=== PATIENT | male | born 1995 | race Caucasian/White ===

== ENCOUNTER 2017-04-29 09:06 | Emergency (ER) | payer MEDICAID ==
[~2017-04-29] VITALS: Ht 170.2 cm; Wt 65.0 kg
[~2017-04-29 09:06] MED LIST: AMOX500T PO; CEPH250C PO; IBUP-238 PO; LORTS PO
[2017-04-29 09:07] VITALS: BP 134/80; PULSE 87; RESP 16; TEMP 97.7; O2SAT 100
[2017-04-29] MEDS ORDERED: NAPROXEN 500 MG TAB PO ONE (09:45)
[2017-04-29] MEDS ORDERED: NAPR500 PO (09:54)
--- NOTE | 2017-04-29 09:54 | PD ---
HPI Chief Complaint: Complaint Time Seen by Provider: 09:28 Travel History International Travel<30 days: No Contact w/Intl Traveler<30days: No Traveled to known affect area: No History of Present Illness HPI Is a 22-year-old male presents to the emergency department complaining of right flank pain is been ongoing for the past 2 years. He states is been fairly constant. He reports he's been seen in [facility] several times for this, and has had 3 or 4 CAT scans in his lifetime. He states he is told that the pain is been from kidney stones. States he's never really passed kidney stones. States symptoms are worse after he can work in a long day. Denies any history of back problems. He reports over the past 4 days symptoms of been worse. Only other symptoms are some occasional nausea, no vomiting. Is also had a little bit difficulty initiating urination in the past. Denies any fevers or chills. No other acute complaints. History Past Medical History Medical History: Denies Significant Hx Tetanus Vaccination: > 5 Years Influenza Vaccination: No PNEUMOCCOCAL Vaccine (Year): 2 Social History Alcohol Use: Yes Tobacco Use: Yes (1 PPD) Allergies-Medications (Allergen,Severity, Reaction): Coded Allergies: No Known Allergies (Verified , 04/29/17) Reported Meds & Prescriptions Reported Meds & Active Scripts Active No Active Prescriptions or Reported Medications Review of Systems Except as stated in HPI: all other systems reviewed are Neg Physical Exam Narrative GENERAL: Well 22-year-old man, no acute distress. SKIN: Focused skin assessment warm/dry. HEAD: Atraumatic. Normocephalic. EYES: Pupils equal and round. No scleral icterus. No injection or drainage. ENT: No nasal bleeding or discharge. Mucous membranes pink and moist. NECK: Trachea midline. No JVD. CARDIOVASCULAR: Regular rate and rhythm. No murmur appreciated. RESPIRATORY: No accessory muscle use. Clear to auscultation. Breath sounds equal bilaterally. GASTROINTESTINAL: No CVA tenderness to percussion. Abdomen soft, non-tender, nondistended. Hepatic and splenic margins not palpable. MUSCULOSKELETAL: No obvious deformities. Data Data Last Documented VS Vital Signs Date Time Temp Pulse Resp B/P Pulse Ox O2 Delivery O2 Flow Rate FiO2 04/29/17 09:23 90 18 04/29/17 09:07 97.7 134/80 100 Room Air Orders Urinalysis - C+S If Indicated (04/29/17 09:35) Naproxen (Naprosyn) (04/29/17 09:45) MDM Medical Decision Making Medical Screen Exam Complete: Yes Emergency Medical Condition: Yes Differential Diagnosis Flank pain, renal colic, kidney stone, other Narrative Course Medical decision making 21-year-old man, well-appearing, with chronic right flank pain this ongoing for 2 years. I'm hesitant to treat this pain to kidney stones. Patient had multiple CAT scans in the past. Unfortunately none of these are available for my review. Nonetheless he looks well. Having no acute symptoms that are worrisome for infection or complete obstruction. Suspect this may be more related to musculoskeletal pain. We'll recommend NSAIDs. Patient does not taken anything yet. Also recommended he get off his records together from previous hospitals and follow-up with urology for further evaluation. Diagnosis Primary Impression: Flank pain Additional Instructions: Take Naprosyn as needed for pain. Collect failure medical records together including previous imaging, diagnostic studies, and ED visits, and follow-up with urology for further evaluation of your chronic pain to see if it could be attributed to kidney stones and what may be done about it. Med/Other Pt SpecificInfo: Prescription(s) given Scripts Naproxen (Naprosyn)500 Mg Dry560 Mg PO BID PRN (PAIN SCALE 1 TO 10) #20 TAB Prov:Brien Leon MD 04/29/17 Disposition: 01 DISCHARGE HOME Condition: Stable Brien Leon MD Apr 29, 2017 09:54
[2017-04-29 10:05] LABS: BLOOD, URINE NEG (NEG); GLUCOSE,URINE NEG (NEG); KETONE, URINE NEG (NEG); NITRITE,URINE NEG (NEG); PH, URINE 6.5 (5.0-8.5); URINE COLOR YELLOW (YELLW/STRAW)
[2017-04-29 10:20] LABS: COMMENT (UR) CULT NOT INDICATED; CULTURE IF INDICATED CULT NOT INDICATED
== END 2017-04-29 10:12 | disposition home or self-care (01) ==
LOC: NEPD 09:06
DX: R10.9 Unspecified abdominal pain (principal); F17.200 Nicotine dependence, unspecified, uncomplicated
CPT/HCPCS: 81001; 99283

== ENCOUNTER 2017-12-26 16:14 | Emergency (ER) | payer SELFPAY ==
[~2017-12-26] VITALS: Ht 167.6 cm; Wt 60.0 kg
[~2017-12-26 16:14] MED LIST changes: -AMOX500T PO; -CEPH250C PO; -IBUP-238 PO; -LORTS PO; +NAPR500 PO
[2017-12-26 16:16] VITALS: BP 131/74; PULSE 93; RESP 18; TEMP 98.1; O2SAT 96
[2017-12-26] MEDS ORDERED: SODIUM CHLOR 0.9% 1000 ML INJ 1,000 ML IV SCH (16:34)
[2017-12-26] MEDS ORDERED: KETOROLAC TROMETHAMINE 30 MG/ML (IVP) VIAL IVP ONE (16:45)
[2017-12-26] MEDS ORDERED: SODIUM CHLORIDE 0.9% FLUSH 10 ML FLUSH IV FLUSH PRN (16:45)
[2017-12-26 17:21] LABS: AUTOMATED NEUTROPHIL # 2.2 TH/MM3 (1.8-7.7); BASOPHIL % 0.3 % (0.0-2.0); BILIRUBIN, URINE NEG (NEG); BLOOD, URINE NEG (NEG); EOSINOPHIL % 0.1 % (0.0-4.0); GLUCOSE,URINE NEG (NEG); HEMATOCRIT 42.9 % (39.0-51.0); HEMOGLOBIN 15.5 GM/DL (13.0-17.0); KETONE, URINE NEG (NEG); LYMPH % 30.2 % (9.0-44.0); LYMPHOCYTE # 1.3 TH/MM3 (1.0-4.8); MEAN CELL VOLUME 86.7 FL (80.0-100.0); MEAN CORPUSCULAR HEMOGLOBIN 31.3 PG (27.0-34.0); MEAN PLATELET VOLUME 8.8 FL (7.0-11.0); MONO % 16.5 % (0.0-8.0); MONOCYTE # 0.7 TH/MM3 (0-0.9); MUCUS URINE FEW /lpf (OCC); NEUT % 52.9 % (16.0-70.0); NITRITE,URINE NEG (NEG); PH, URINE 5.5 (5.0-8.5); PLATELET COUNT 192 TH/MM3 (150-450); RED BLOOD COUNT 4.95 MIL/MM3 (4.50-5.90); RED CELL DISTRIBUTION WIDTH 12.4 % (11.6-17.2); SQUAMOUS EPITHELIAL CELL URINE <1 /hpf (0-5); URINE COLOR YELLOW (YELLW/STRAW); URINE LEUKOCYTE ESTERASE NEG (NEG); WHITE BLOOD COUNT 4.2 TH/MM3 (4.0-11.0)
--- NOTE | 2017-12-26 17:21 | RADRPT ---
EXAM DATE/TIME: 12/26/2017 16:58 [facility] COMPARISON: No previous studies available for comparison. INDICATIONS : Right flank pain, recent flu. ORAL CONTRAST: No oral contrast ingested. RADIATION DOSE: 3.05 CTDIvol (mGy) MEDICAL HISTORY : Renal calculi. Facial palsy SURGICAL HISTORY : Rt arm lymphnodes ENCOUNTER: Initial ACUITY: 1 day PAIN SCALE: 10/10 LOCATION: Right flank TECHNIQUE: Volumetric scanning of the abdomen and pelvis was performed. Using automated exposure control and ad justment of the mA and/or kV according to patient size, radiation dose was kept as low as reasonably achievable to obtain optimal diagnostic quality images. DICOM format image data is available electro nically for review and comparison. FINDINGS: Lung bases are clear. No acute findings in the liver, spleen, adrenals or pancreas. There are bilateral renal calculi. There are tiny punctate calcifications in the upper and lower pole right kidney measuring 1-2 mm. Is a 3 mm calculus upper pole left kidney heads 1-2 mm calcifications lower pole left kidney. No hydronephrosis. No definite bladder or ureteral calculi are identified. No pelvic masses or free fluid. No acute bony abnormalities. CONCLUSION: 1. Small bilateral nonobstructing renal calculi. No acute findings. Aki Gonzalez MD on December 26, 2017 at 17:13 Board Certified Radiologist. This report was verified electronically.
[2017-12-26 17:29] LABS: ALBUMIN 4.8 GM/DL (3.4-5.0); AST (GOT) 40 U/L (15-37); BICARBONATE 30.7 MEQ/L (21.0-32.0); BLOOD UREA NITROGEN 14 MG/DL (7-18); CALCIUM 8.8 MG/DL (8.5-10.1); CHLORIDE 101 MEQ/L (98-107); CREATININE 0.77 MG/DL (0.60-1.30); GLOMERULAR FILTRATION RATE 125 ML/MIN (>89); GLUCOSE,RANDOM 95 MG/DL (74-106); SODIUM (NA) 137 MEQ/L (136-145)
[2017-12-26 17:30] LABS: ALT (GPT) 17 U/L (12-78)
[2017-12-26 17:32] LABS: ALKALINE PHOSPHATASE 89 U/L (45-117); TOTAL BILIRUBIN ADULT 1.8 MG/DL (0.2-1.0); TOTAL PROTEIN 8.3 GM/DL (6.4-8.2)
[2017-12-26 17:36] LABS: MEAN CORPUSCULAR HGB CONC 36.1 % (32.0-36.0)
[2017-12-26 18:13] LABS: BANDS 8 % (0-6); BASOPHILS 1 % (0-2); LYMPHOCYTES 28 % (9-44); MONOCYTES 11 % (0-8); NEUTROPHIL # MANUAL DIFF 2.5 TH/MM3 (1.8-7.7); POLYS (SEG NEUTROPHILS) 52 % (16-70)
[2017-12-26] MEDS ORDERED: IBUP1TAB7 PO (18:39)
--- NOTE | 2017-12-26 18:40 | PD ---
HPI Chief Complaint: Flank/Kidney Pain Time Seen by Provider: 16:23 Travel History International Travel<30 days: No Contact w/Intl Traveler<30days: No Traveled to known affect area: No History of Present Illness HPI 22-year-old male presents to the emergency department with complaint of severe right flank pain that has been on and off for the past 2 years and started again a couple days ago. He has had multiple CT scans in the past and has been told he has kidney stones and that he has been told he does not have kidney stones. He reports dysuria. Denies hematuria. Denies fever. Reports nausea without vomiting. Says he did vomit 2 days ago but did have the flu last week. Has been taking ibuprofen for symptom management. Rates pain 05/10. Describes it as a aching sensation. No known aggravating or relieving factors. No primary care provider. History of kidney stones. No known allergies. No other modifying factors or associated signs and symptoms. PFSH Past Medical History Autoimmune Disease: No Blood Disorders: No Anxiety: No Depression: No Cardiovascular Problems: No Diminished Hearing: No Gastrointestinal Disorders: No (CONSTIPATION) Genitourinary: No Musculoskeletal: No Psychiatric: No Respiratory: No Immunizations Current: Yes Sickle Cell Disease: No PNEUMOCCOCAL Vaccine (Year): 2 ?: Not Past Surgical History Tonsillectomy: Yes Other Surgery: Yes (lymph node removed from right armpit, adenoids) Social History Alcohol Use: Yes (occ) Tobacco Use: Yes (1/2 PPD) Substance Use: No Allergies-Medications (Allergen,Severity, Reaction): Coded Allergies: No Known Allergies (Verified Adverse Reaction, Unknown, 12/26/17) Reported Meds & Prescriptions Reported Meds & Active Scripts Active Ibuprofen 800 Mg Tab 800 Mg PO Q6HR PRN Review of Systems Except as stated in HPI: all other systems reviewed are Neg Physical Exam Narrative GENERAL: Well-nourished, well-developed male patient, in no acute distress SKIN: Warm and dry. No rash. HEAD: Atraumatic. Normocephalic. EYES: Pupils equal and round. No scleral icterus. No injection or drainage. ENT: Mucosa pink and moist. NECK: Trachea midline. CARDIOVASCULAR: Regular rate and rhythm. No murmur appreciated. RESPIRATORY: No accessory muscle use. Clear to auscultation. Breath sounds equal bilaterally. GASTROINTESTINAL: Abdomen soft, non-tender, nondistended. Hepatic and splenic margins not palpable. Bowel sounds are active 4 quadrants. Bladder nontender and nondistended. MUSCULOSKELETAL: No obvious deformities. No clubbing. No cyanosis. No edema. BACK: Right CVA tenderness NEUROLOGICAL: Awake and alert. Oriented 3. No obvious cranial nerve deficits. Motor grossly within normal limits. Normal speech. Moves all extremities. 5/5 strength to all extremities. PSYCHIATRIC: Appropriate mood and affect; insight and judgment normal. Data Data Last Documented VS Vital Signs Date Time Temp Pulse Resp B/P (MAP) Pulse Ox O2 Delivery O2 Flow Rate FiO2 12/26/17 16:22 18 12/26/17 16:16 98.1 93 131/74 (93) 96 Orders Orders Complete Blood Count With Diff (12/26/17 16:34) Comprehensive Metabolic Panel (12/26/17 16:34) Lipase (12/26/17 16:34) Urinalysis - C+S If Indicated (12/26/17 16:34) Ct Abd/Pel W/O Iv Contrast (12/26/17 16:34) Iv Access Insert/Monitor (12/26/17 16:34) Sodium Chlor 0.9% 1000 Ml Inj (Ns 1000 M (12/26/17 16:34) Sodium Chloride 0.9% Flush (Ns Flush) (12/26/17 16:45) Ketorolac Inj (Toradol Inj) (12/26/17 16:45) Ed Discharge Order (12/26/17 18:40) Labs Laboratory Tests Test 12/26/17 16:45 White Blood Count 4.2 TH/MM3 Red Blood Count 4.95 MIL/MM3 Hemoglobin 15.5 GM/DL Hematocrit 42.9 % Mean Corpuscular Volume 86.7 FL Mean Corpuscular Hemoglobin 31.3 PG Mean Corpuscular Hemoglobin Concent 36.1 % Red Cell Distribution Width 12.4 % Platelet Count 192 TH/MM3 Mean Platelet Volume 8.8 FL Neutrophils (%) (Auto) 52.9 % Lymphocytes (%) (Auto) 30.2 % Monocytes (%) (Auto) 16.5 % Eosinophils (%) (Auto) 0.1 % Basophils (%) (Auto) 0.3 % Neutrophils # (Auto) 2.2 TH/MM3 Lymphocytes # (Auto) 1.3 TH/MM3 Monocytes # (Auto) 0.7 TH/MM3 Eosinophils # (Auto) 0.0 TH/MM3 Basophils # (Auto) 0.0 TH/MM3 CBC Comment AUTO DIFF Differential Total Cells Counted 100 Neutrophils % (Manual) 52 % Band Neutrophils % 8 % Lymphocytes % 28 % Monocytes % 11 % Basophils % 1 % Neutrophils # (Manual) 2.5 TH/MM3 Differential Comment FINAL DIFF MANUAL Platelet Estimate NORMAL Platelet Morphology Comment NORMAL Urine Color YELLOW Urine Turbidity CLEAR Urine pH 5.5 Urine Specific [place] 1.022 Urine Protein TRACE mg/dL Urine Glucose (UA) NEG mg/dL Urine Ketones NEG mg/dL Urine Occult Blood NEG Urine Nitrite NEG Urine Bilirubin NEG Urine Urobilinogen LESS THAN 2.0 MG/DL Urine Leukocyte Esterase NEG Urine RBC 1 /hpf Urine WBC 1 /hpf Urine Squamous Epithelial Cells <1 /hpf Urine Mucus FEW /lpf Microscopic Urinalysis Comment CULT NOT INDICATED Blood Urea Nitrogen 14 MG/DL Creatinine 0.77 MG/DL Random Glucose 95 MG/DL Total Protein 8.3 GM/DL Albumin 4.8 GM/DL Calcium Level 8.8 MG/DL Alkaline Phosphatase 89 U/L Aspartate Amino Transf (AST/SGOT) 40 U/L Alanine Aminotransferase (ALT/SGPT) 17 U/L Total Bilirubin 1.8 MG/DL Sodium Level 137 MEQ/L Potassium Level 4.4 MEQ/L Chloride Level 101 MEQ/L Carbon Dioxide Level 30.7 MEQ/L Anion Gap 5 MEQ/L Estimat Glomerular Filtration Rate 125 ML/MIN Lipase 93 U/L [facility] Medical Decision Making Medical Screen Exam Complete: Yes Emergency Medical Condition: Yes Medical Record Reviewed: Yes Differential Diagnosis Nephrolithiasis, pyelonephritis, UTI Narrative Course 22-year-old male with history of kidney stones with right flank pain. CBC, CMP , lipase, urinalysis, CT abdomen/pelvis, Toradol, IV fluids ordered. 1935: CBC unremarkable. CMP unremarkable. Lipase 93. Urinalysis without signs of infection. CT abdomen/pelvis concludes: Small bilateral nonobstructing renal calculi. No acute findings. Patient provided a copy of the CT report. Ibuprofen prescribed for home. I discussed the patient with Dr. Zamora and he agrees with discharge. Instructed patient to follow up with primary care provider. Patient verbalizes understanding and agreement with treatment plan. Patient is medically cleared and stable for discharge. Discussed reasons to return to the emergency department. Patient agrees with treatment plan. The patients vital signs are stable and the patient is stable for outpatient follow-up and treatment. Patient discharged home, stable and in no acute distress. Diagnosis Primary Impression: Renal calculi Referrals: Primary Care Physician Urologist Patient Instructions: General Instructions, Kidney Stones (ED) Additional Instructions: Ibuprofen as needed and as directed to reduce pain Drink plenty of fluids Follow-up with primary care provider Follow-up with urologist Return to the emergency department immediately with worsening of symptoms Med/Other Pt SpecificInfo: Prescription(s) given Scripts Ibuprofen (Ibuprofen) 800 Mg Tab 800 MG PO Q6HR Y for PAIN, #30 TAB 0 Refills Prov: Reanna Kwok 12/26/17 Disposition: 01 DISCHARGE HOME Condition: Stable Reanna Kwok Dec 26, 2017 18:39
[2017-12-26 19:12] VITALS: BP 110/65
== END 2017-12-26 19:12 | disposition home or self-care (01) ==
LOC: NEPD 16:14
DX: N20.0 Calculus of kidney (principal); F17.200 Nicotine dependence, unspecified, uncomplicated
CPT/HCPCS: 74176; 80053; 81001; 83690; 85007; 85027; 96374; 99284; J1885; J7030